=== PATIENT | male | born 1955 | race Caucasian/White ===

== ENCOUNTER 2019-03-12 05:49 | Day surgery (SDC) | payer BC, OTHER ==
[~2019-03-12] VITALS: Ht 160 cm; Wt 75.9 kg
[2019-03-12] VITALS (9 sets, daily range): BP systolic 108–139; BP diastolic 61–80; PULSE 59–80; RESP 18–25; Ht 160 cm; Wt 75.9 kg
[~2019-03-12 05:49] MED LIST: ASPI325T30 PO; ATOR40TA68 PO; LISI1TAB23 PO; METO-335 PO; NITR0.4T39 SL; OMEG1CAP17 PO; TAMS-14 PO
[2019-03-12] MEDS ORDERED: POLYMYXIN/BACITRACIN 1L IRRIG ONE (06:42)
[2019-03-12] MEDS ORDERED: NEOMYC/POLYMYX/BACIT 30 GM OINT ONE (06:42)
[2019-03-12] MEDS ORDERED: FENTAnyl 50 MCG/ML VIAL ONE (06:50)
[2019-03-12] MEDS ORDERED: MIDAZOLAM 1 MG/ML 2 ML INJ ONE (06:50)
[2019-03-12] MEDS ORDERED: PROPOFOL 20 ML ONE (06:50)
[2019-03-12] MEDS ORDERED: ROCURONIUM 50 MG INJ ONE (06:50)
[2019-03-12] MEDS ORDERED: CEFAZOLIN 1 GM INJ ONE (06:50)
[2019-03-12] MEDS ORDERED: LIDOCAINE 2% (SDV) 5 ML INJ ONE (06:50)
[2019-03-12] MEDS ORDERED: ROPIVACAINE 0.5 % 30 ML VIAL ONE ×2 (06:51→07:14)
[2019-03-12] MEDS ORDERED: LACTATED RINGER'S 1,000 ML IV SCH (07:00)
[2019-03-12] MEDS ORDERED: SEVOFLURANE 15 MIN ONE (07:00)
[2019-03-12] MEDS ORDERED: METOCLOPRAMIDE 10 MG INJ ONE (08:12)
[2019-03-12] MEDS ORDERED: DEXAMETHASONE 4 MG/ML 5 ML INJ ONE (08:12)
[2019-03-12] MEDS ORDERED: FAMOTIDINE 20 MG INJ ONE (08:12)
[2019-03-12] MEDS ORDERED: ONDANSETRON 4 MG INJ ONE (08:12)
[2019-03-12] MEDS ORDERED: OXYCODONE/ACETAMINOPHEN (5/325) TAB PO PRN ×2 (08:30)
[2019-03-12] MEDS ORDERED: ONDANSETRON 4 MG INJ IV PRN (08:30)
[2019-03-12] MEDS ORDERED: hydrALAzine 20 MG INJ IV PRN (08:30)
[2019-03-12] MEDS ORDERED: LABETALOL HCL 20MG INJ IV PRN (08:30)
[2019-03-12] MEDS ORDERED: MEPERIDINE 25 MG INJ IV PRN (08:30)
[2019-03-12] MEDS ORDERED: HYDROmorphONE 1 MG/5 ML IV SYRINGE IV PRN ×3 (08:30)
[2019-03-12] MEDS ORDERED: GLYCOPYRROLATE 0.4 MG INJ ONE (09:38)
[2019-03-12] MEDS ORDERED: NEOSTIGMINE 3 MG/3 ML SYRINGE ONE (09:38)
[2019-03-12] MEDS ORDERED: morphine 2 MG INJ IV PRN (11:00)
== END 2019-03-12 12:24 | disposition home or self-care (01) ==
LOC: SDS 05:49
PROVIDERS: ATTEND Orthopaedic Surgery
DX: M20.21 Hallux rigidus, right foot (principal); M20.41 Other hammer toe(s) (acquired), right foot; I10 Essential (primary) hypertension; R73.03 Prediabetes; I25.10 Atherosclerotic heart disease of native coronary artery without angina pectoris; Z79.82 Long term (current) use of aspirin
CPT/HCPCS: 73630; 82306; 88300; J0690; J1100; J2250; J2405; J2710; J2765; J2795; J3010